=== PATIENT | male | born 1965 | race Caucasian/White ===

== ENCOUNTER 2024-12-22 12:20 | Emergency (ER) | payer OTHER, SELFPAY ==
[2024-12-22 13:18] VITALS: BP 130/88; PULSE 84; RESP 16; TEMP 36.5; O2SAT 99
--- NOTE | 2024-12-22 13:49 | ED.GENADULT ---
HPI - General Adult General Chief complaint: Skin/Abscess/Foreign Body Stated complaint: RASH Time Seen by Provider: 12/22/24 13:49 Source: patient Mode of arrival: ambulatory Limitations: no limitations History of Present Illness HPI narrative: 59-year-old male patient presents to [facility] with complaints of rash bilateral hands, wrists and arms, right-sided neck and right eyelid. Patient states he was clean away some brush last week in and states it started on his hands and he has been treating it with calamine lotion but now it is spread. Denies fevers, body aches or chills. Denies chest pain shortness of breath. Related Data Home Medications ?Medication ?Instructions ?Recorded ?Confirmed ?Last Taken ?Type simvastatin 40 mg tablet mg 12/22/24 Unknown History Allergies Allergy/AdvReac Type Severity Reaction Status Date / Time diphenhydramine Allergy Mild DECREASES Unverified 12/22/24 13:31 B/P Review of Systems Review of Systems: CONSTITUTIONAL: Denies fever, chills, or sweats. EYES: Denies visual changes, redness, or discharge. ENT: Denies rhinorrhea, congestion, sore throat, or otalgia. CARDIOVASCULAR: Denies chest pain, palpitations, or edema. RESPIRATORY: Denies cough or dyspnea. GASTROINTESTINAL: Denies abdominal pain, nausea, vomiting, or diarrhea. GENITOURINARY: Denies dysuria or hematuria. SKIN: Positive rash or itching. MUSCULOSKELETAL: Denies back pain, joint pain, or myalgia. NEUROLOGIC: Denies headache, numbness, or weakness. PSYCHIATRIC: Denies anxiety or depression. [facility] Past Medical History Medical History CVA (cerebral vascular accident) Melena Asthma Hypercholesteremia Comments At the time of my signature I agree with nursing past medical history, surgical, social, and family history. There is no relevant family history pertinent to the presenting complaint. Exam Narrative: GENERAL: Well-appearing, well-nourished, and in no acute distress. HEAD: Normocephalic, atraumatic. EYES: PERRLA and EOMI. ENT: Nares clear, no rhinorrhea or epistaxis. Mucous membranes moist. Patient appears to have a clogged eye duct noted to the inner canthis of the right eye. NECK: Supple. No lymphadenopathy CHEST: Clear to auscultation. No respiratory distress. HEART: Regular rate and rhythm. No murmur heard. Normal peripheral pulses. ABDOMEN: Soft, nontender, nondistended, normal active bowel sounds. EXTREMITIES: Normal range of motion. No edema. SKIN: Warm, dry, patient has macular papular rash noted to bilateral hands, and lower upper extremities. There is a little bit of a similar rash noted to the right side of the neck and the right eyelid. NEURO: No focal deficits. Alert and oriented x3. Course Course Level of Care: Express Care Visit Vital Signs Vital signs: Vital Signs Temperature 36.5 C 12/22/24 13:18 Pulse Rate 84 12/22/24 13:18 Respiratory Rate 16 12/22/24 13:18 Blood Pressure 130/88 12/22/24 13:18 Pulse Oximetry 99 12/22/24 13:18 Temperature 36.5 C 12/22/24 13:18 Pulse Rate 84 12/22/24 13:18 Respiratory Rate 16 12/22/24 13:18 Blood Pressure 130/88 12/22/24 13:18 Pulse Oximetry 99 12/22/24 13:18 Vital signs reviewed. The patient has been informed that they may have pre-hypertension or Hypertension based on a BP reading in the department. I recommend that the patient call the primary care provider listed on their discharge instructions or a physician of their choice this week to arrange follow up for further evaluation of possible pre-hypertension or Hypertension Medical Decision Making MDM Narrative Medical decision making narrative: Plan of care for patient is to discharge home with some oral steroids for the rash and encouraged him to use a warm compress to right eye to help with drainage of the clogged eye duct. Patient should also take an [id number] 24 hour antihistamine. Patient verbalized understanding denies any other questions or concerns at this time. Differential Diagnosis Differential Diagnosis: differential diagnosis: Contact dermatitis, poison clarissa, poison sumac, psoriasis, eczema, allergic reaction, drug reaction, scabies, tinea syphilis, lung disease, viral exanthema, pityriasis, erythema multiforme. Vital Signs Vital Signs: Vital Signs Temperature 36.5 C 12/22/24 13:18 Pulse Rate 84 12/22/24 13:18 Respiratory Rate 16 12/22/24 13:18 Blood Pressure 130/88 12/22/24 13:18 Pulse Oximetry 99 12/22/24 13:18 Temperature 36.5 C 12/22/24 13:18 Pulse Rate 84 12/22/24 13:18 Respiratory Rate 16 12/22/24 13:18 Blood Pressure 130/88 12/22/24 13:18 Pulse Oximetry 99 12/22/24 13:18 Critical Care Time Critical Care Time Critical Care Time: No Discharge Plan Discharge Clinical Impression: Contact dermatitis Qualifiers: Contact dermatitis type: allergic Contact dermatitis trigger: non-food plants Qualified Code(s): L23.7 - Allergic contact dermatitis due to plants, except food Patient Disposition: Home, Self-Care Condition: Stable Instructions: Antibiotic Form, Contact Dermatitis (ED) Additional Instructions: Wash the area with soap and cool water only. Use skin creams/lotion or anti-itch medicine to reduce itchiness Avoid scratching when possible to prevent worsening of the condition and disruption of the skin that could lead to bacterial infection To relieve itching, place a cool washcloth or some ice over the area that itches, rather than scratching Follow up with primary care provider or seek ER if you have trouble breathing, become hoarse, or start wheezing, develop belly cramps, vomiting or feel dizzy. Patient Language: Wolof Prescriptions: New prednisone 10 mg tablets,dose pack See Rx Instructions .ROUTE .COMPLEX Qty: 48 0RF Rx Instructions: 50 mg x 3 days, 40 mg x 3 days, 30 mg x 3 days, 20 mg x 3 days, 10 mg x 3 days No Action simvastatin 40 mg tablet Follow-up/Referrals: Geri,Gideon Núñez MD [Primary Care Provider] - Time of Disposition: 13:58
== END 2024-12-22 14:03 | disposition home or self-care (01) ==
PROVIDERS: Emergency Provider Nurse Practitioner Family; PCP Family Medicine
DX: L23.7 Allergic contact dermatitis due to plants, except food (principal); E78.00 Pure hypercholesterolemia, unspecified; J45.909 Unspecified asthma, uncomplicated; Z86.73 Personal history of transient ischemic attack (TIA), and cerebral infarction without residual deficits
CPT/HCPCS: 99203; G0463